=== PATIENT | female | born 1980 | race Caucasian/White ===

== ENCOUNTER 2021-07-03 09:25 | Day surgery (SDC) | payer OTHER ==
[~2021-07-03] VITALS: Ht 149.9 cm; Wt 90.4 kg
[2021-07-03] MEDS ORDERED: PANT40 PO (09:54)
[2021-07-03] MEDS ORDERED: MULVITA PO (09:55)
[2021-07-03] MEDS ORDERED: Apple Cider Vi300 MG PO (09:55)
--- NOTE | 2021-07-03 10:12 | NUR ---
Ambulatory in Day Surgery History, Chart, Medications and Allergies reviewed before start of procedure.Pre-Op teaching done. Pt verbalizes understanding. Patient States Post-Procedure ride home has been arranged.
--- NOTE | 2021-07-03 10:18 | NUR ---
Lungs clear T/O to Auscultation.
--- NOTE | 2021-07-03 10:41 | NUR ---
07/03/21 1041 Jacek Anglin PATIENT DETERMINED TO BE ASA APPROPRIATE FOR VERSED AND FENTANYL SEDATION PRIOR TO START OF PROCEDURE BY DR. CORNEJO. Bite Block Placed. 3-LEAD EKG REVIEWED WITH PHYSICIAN PRIOR TO START OF PROCEDURE. Patient to ENDO 1 History, Chart, Medications and Allergies reviewed before start of procedure. MONITOR INTACT WITH CONTINUOUS PULSE OXIMETRY AND INTERMITTENT BP. O2 VIA POM INTACT THROUGHOUT SEDATION/PROCEDURE.
--- NOTE | 2021-07-03 11:02 | NUR ---
PT RESTING COMFORTABLY IN BED, AWAKES TO TOUCH AND VOICE. ABLE TO REPOSITION SELF IN BED.
--- NOTE | 2021-07-03 11:37 | NUR ---
Patient up to Ambulate independently. Gait steady. Discharge instructions reviewed with patient. Patient verbalizes understanding. Copy given to patient to take home. Patient States Post-Procedure ride home has been arranged. Discharged via wheelchair to private car for ride home. ALL BELONGINGS RETURNED TO PT THAT SHE CAME TO [facility] WITH.
== END 2021-07-03 22:55 | disposition home or self-care (01) ==
LOC: ORSCMMR 09:25 → ORSCSDS 10:30 → ORD 10:30 → ORSCMMR 22:55
PROVIDERS: Internal Medicine Gastroenterology
PROC: 0DBA8ZX Excision of Jejunum, Via Natural or Artificial Opening Endoscopic, Diagnostic (ICD-10-PCS; principal; 2021-07-03 10:30)
PROC: 0DB68ZX Excision of Stomach, Via Natural or Artificial Opening Endoscopic, Diagnostic (ICD-10-PCS; principal; 2021-07-03 10:30)
DX: K52.9 Noninfective gastroenteritis and colitis, unspecified (principal); K22.70 Barrett's esophagus without dysplasia; K59.09 Other constipation; Z87.19 Personal history of other diseases of the digestive system; K21.9 Gastro-esophageal reflux disease without esophagitis; E03.9 Hypothyroidism, unspecified; F41.9 Anxiety disorder, unspecified; E55.9 Vitamin D deficiency, unspecified; E66.9 Obesity, unspecified; Z68.41 Body mass index [BMI] 40.0-44.9, adult; Z79.899 Other long term (current) drug therapy
CPT/HCPCS: 88305; 88342; J2250; J3010; J7120